=== PATIENT | male | born 1980 ===

== ENCOUNTER 2024-10-14 06:18 | Day surgery (SDC) | payer OTHER, SELFPAY | END 2024-10-14 14:15 | disposition home or self-care (01) | LOC: GI 06:18 | PROVIDERS: ATTENDING PHYSICIAN Internal Medicine Gastroenterology | DX: Z12.11 Encounter for screening for malignant neoplasm of colon (principal); Z83.719 Family history of colon polyps, unspecified; K64.8 Other hemorrhoids; Q43.8 Other specified congenital malformations of intestine | CPT/HCPCS: G0105 ==